=== PATIENT | female | born 1965 | race Caucasian/White ===

== ENCOUNTER 2024-09-14 21:58 | Emergency (ER) | payer OTHER ==
[~2024-09-14] VITALS: Ht 154.9 cm; Wt 62.1 kg
[2024-09-14 23:22] VITALS: TEMP 99.3
[2024-09-15] MEDS: IV NS 0.9% 1,000 ML BAG IV ONE
[2024-09-15 00:04] LABS: BASOPHILS # (AUTO) 0.1 K/uL (0.0-0.2); EOSINOPHILS % (AUTO) 0.9 % (0.0-6.0); HEMATOCRIT 41 % (33-45); LYMPHOCYTES # (AUTO) 1.3 K/uL (0.8-4.8); LYMPHOCYTES % (AUTO) 26.9 % (20.0-44.0); MEAN CORPUSCULAR HEMOGLOBIN 27 PG (26.0-33.0); MEAN CORPUSCULAR HGB CONC 34 g/dl (31.0-36.0); MEAN CORPUSCULAR VOLUME 80 fL (82-100); MONOCYTES # (AUTO) 0.4 K/uL (0.1-1.30); MONOCYTES % (AUTO) 8.5 % (2.0-12.0); NEUTROPHILS # (AUTO) 3.1 K/uL (1.8-8.9); NEUTROPHILS % (AUTO) 61.7 % (43.0-81.0); PLATELET COUNT (AUTO) 177 K/uL (150-450); RED BLOOD CELL COUNT(AUTO) 5.15 MIL/uL (4.0-5.2); RED CELL DISTRIBUTION WIDTH 14.5 % (11.5-15.0)
[2024-09-15 00:17] LABS: CALCIUM, SERUM 9.5 mg/dL (8.5-10.1); CREATININE 0.8 mg/dL (0.6-1.3); POTASSIUM 4.3 mmol/L (3.5-5.1)
[2024-09-15 00:19] LABS: PARTIAL THROMBOPLASTIN TIME 28.2 SEC (24.3-34.3); PROTHROMBIN TIME 10.6 SECS (9.2-11.1)
[2024-09-15 00:22] LABS: ALBUMIN 4.1 g/dL (3.4-5.0); BILIRUBIN,DIRECT 0.1 mg/dL (0.0-0.2); BILIRUBIN,TOTAL 0.5 mg/dL (0.2-1.0); TOTAL PROTEIN, SERUM 7.7 g/dL (6.4-8.2)
[2024-09-15 00:25] LABS: LACTIC ACID 0.6 mmol/L (0.4-2.0)
[2024-09-15] MEDS ORDERED: CETI1TAB9 PO (00:42)
[2024-09-15] MEDS ORDERED: IBUP-1490 PO (00:42)
[2024-09-15 00:53] LABS: NEUTROPHILS % (MANUAL) 57 (42-76)
[2024-09-15 00:54] LABS: BASOPHILS % (MANUAL) 0 % (0.0-2.0); EOSINOPHILS % (MANUAL) 0 % (0-4); LYMPHOCYTES % (MANUAL) 34 % (16-48); MONOCYTES % (MANUAL) 7 % (0-11.0); PLATELET ESTIMATE ADEQUATE; REACTIVE LYMPHOCYTES 2 % (0-0)
[2024-09-15 01:35] VITALS: BP 121/78; O2SAT 98
== END 2024-09-15 01:36 | disposition home or self-care (01) ==
LOC: ER 22:09
DX: J06.9 Acute upper respiratory infection, unspecified (principal); R50.9 Fever, unspecified; R53.83 Other fatigue; H92.01 Otalgia, right ear; Z20.822 Contact with and (suspected) exposure to COVID-19
CPT/HCPCS: 99285; 71045; 87426; 93005; 87804 ×2; 84145; 85025; 80048; 87040 ×2; 83605; 80076; 36415; 85730; 96360; 85007; J7040